=== PATIENT | female | born 1965 | race Caucasian/White ===

== ENCOUNTER 2019-08-12 11:50 | Observation (INO) | payer SELFPAY ==
[2019-08-12] MEDS ORDERED: Azithromycin 500 MG VIAL ONE (12:35)
[2019-08-12 13:47] LABS: Lactic Acid 2.9 mmol/L (0.5-2.2)
[2019-08-12] MEDS ORDERED: Sodium Chloride 0.9% 1,000 ML IV SCH (14:29)
[2019-08-12] MEDS ORDERED: Ibuprofen 200 MG TAB PO PRN (14:33)
[2019-08-12] MEDS ORDERED: hydrALAZINE 20 MG/ML VIAL SLOW IVP PRN (14:33)
[2019-08-12] MEDS ORDERED: cloNIDine 0.1 MG TAB PO PRN (14:33)
[2019-08-12] MEDS ORDERED: Guaifenesin DM 100-10/5 ML UDCUP PO PRN (14:33)
[2019-08-12] MEDS ORDERED: Ondansetron PF 4 MG/2 ML Vial IVP PRN (14:33)
[2019-08-12] MEDS ORDERED: Ondansetron ODT 4 MG TAB PO PRN (14:33)
[2019-08-12] MEDS ORDERED: Acetaminophen 500 MG TAB PO PRN (14:33)
[2019-08-12 14:39] VITALS: BMI 33.3
--- NOTE | 2019-08-12 15:51 | HP ---
PRIMARY CARE PROVIDER: Kacie Aguila of [place], [place]. CHIEF COMPLAINT: Cough, shortness of breath, general body aches. HISTORY OF PRESENT ILLNESS: This is a 54-year-old female who initially presented to [place] [facility] complaining of sore throat, general body aches, cough and fever. The patient states she had symptoms for approximately 1 week, taking [id number] preparations for mild relief. The patient states she took NyQuil on a regular basis with some resolution of her symptoms in one week. The patient states she had approximately 2 days without symptoms, regaining the similar symptoms of upper respiratory infection within the last 24 to 48 hours. The patient admits to body aches, low-grade fever that was undocumented, cough, congestion, rhinorrhea. The patient denies any prior history of influenza and states she had walking pneumonia in the past. The patient reports a prior history of smoking but none currently. The patient also reports her has had similar symptoms in the last 24 to 48 hours. The patient denies having influenza or pneumonia vaccination which were current. In the emergency room, the patient underwent general evaluation including chest imaging showing questionable infiltrate in the left lower lobe. The patient's metabolic screening showed mild lactic acidosis and the patient received IV Rocephin in addition to normal saline and ibuprofen. The patient was transferred to the [facility] Emergency Department for further evaluation. PAST MEDICAL HISTORY: 1. Hypertension. 2. Hyperlipidemia. 3. Fatty liver disease. 4. Diabetes mellitus, diet controlled. PAST SURGICAL HISTORY: 1. Status post right wrist surgery x2. 2. Status post right elbow repair. 3. Status post left shoulder repair. PSYCHIATRIC HISTORY: Positive for depression. CURRENT MEDICATIONS: 1. BuSpar 15 mg p.o. b.i.d. 2. Lipitor 10 mg p.o. daily. 3. Metoprolol succinate 100 mg p.o. daily. 4. Losartan 25 mg p.o. daily. 5. HCTZ 25 mg p.o. daily. 6. Gabapentin 300 mg p.o. t.i.d. ALLERGIES: NO KNOWN DRUG ALLERGIES. FAMILY HISTORY: Positive for hypertension and diabetes mellitus. SOCIAL HISTORY: The patient formally used tobacco products, none currently. No alcohol or illicit drug use. . REVIEW OF SYSTEMS: CONSTITUTIONAL: Negative for weight loss or gain, ability to conduct usual activities. SKIN: Negative for rash, itching. EYES: Negative for double vision, pain. ENT/MOUTH: Negative for nose bleeding, neck stiffness, pain, tenderness. CARDIOVASCULAR: Negative for palpitations, dyspnea on exertion, orthopnea. RESPIRATORY: Negative for shortness of breath, wheezing, cough, hemoptysis, fever or night sweats. GASTROINTESTINAL: Negative for poor appetite, abdominal pain, heartburn, nausea, vomiting, constipation, or diarrhea. GENITOURINARY: Negative for urgency, frequency, dysuria, nocturia. MUSCULOSKELETAL: Negative for pain, swelling. NEUROLOGIC/PSYCHIATRIC: Negative for anxiety, depression. ALLERGY/IMMUNOLOGIC: Negative for skin rash, bleeding tendency. Otherwise negative except as stated per HPI. PHYSICAL EXAMINATION: VITAL SIGNS: On admission, blood pressure 187/110, pulse 110, respiratory rate 18, temperature 99.8 degrees Fahrenheit, O2 saturation 96% on room air. GENERAL APPEARANCE: This is a 54-year-old female, alert and oriented x3, pleasant, in mild distress. HEENT: Pupils are equal, round, reactive to light and accommodation. Extraocular muscles are intact. No scleral icterus. No conjunctival injection. Nares patent. OP is clear. Oral mucosa dry. NECK: Supple. No cervical adenopathy. No thyromegaly. No carotid bruits. No JVD appreciated. Cervical spine with full active and passive range of motion. No meningeal signs noted. CHEST: Lungs are clear to auscultation bilaterally. CARDIOVASCULAR: S1, S2 with tachycardia. No murmur, rub, or gallop appreciated. ABDOMEN: Rounded, soft, nontender, and nondistended. Bowel sounds are positive in all 4 quadrants. There is no hepatosplenomegaly. No abdominal bruits. No rebound or guarding appreciated. EXTREMITIES: Warm and dry with fair turgor. No clubbing, cyanosis, or asymmetric edema appreciated. Pulses palpable distally at the dorsalis pedis, posterior tibial, and popliteal arteries bilaterally. Capillary refill less than 2 seconds. NEUROLOGIC: Cranial nerves 2 through 12 are grossly intact. No focal or lateralizing signs appreciated. PERTINENT LABORATORY AND X-RAY FINDINGS: Sodium 144, potassium 3.8, chloride 103, CO2 of 27, BUN 8, creatinine 0.87, glucose 109. Lactic acid level 2.8, calcium 9.8. LFTs within normal limits. Albumin 4.3. CBC showed a white blood cell count of 9.6, hemoglobin 15, hematocrit 46, platelet count 235 with 74% neutrophils. Urinalysis showed specific gravity of 1.028, pH of 5, positive protein, small bilirubin with 4 to 6 wbc's per high-power field, 7 to 10 squamous epithelial cells. Portable chest x-ray dated 08/12/2019, by my review shows questionable early infiltrate in the left lower lobe. ASSESSMENT AND PLAN: 1. Pneumonia, suspected community-acquired with gram-positive cocci. The patient will be observed on the medical unit. We will continue Rocephin 2 g IV q.24 hours with initial Zithromax 500 mg IV daily. Add DuoNeb q.4 hours. Mucolytics and antitussive agents as needed. Blood cultures x2 pending. Continue intravenous normal saline at 125 mL/hour. 2. Lactic acidosis. Suspect multifactorial including #1 in addition to dehydration. Continue IV fluids with normal saline at 125 mL/hour and repeat lactic acid level per protocol. 3. Hypertension. Labile. Resume home antihypertensive regimen once confirmed. P.r.n. hydralazine and clonidine. Serial blood pressure monitoring. 4. Dehydration. See #2 above. Continue IV fluids as outlined previously and encourage free water intake orally. 5. Prophylaxis. SCDs while in bed. Pepcid 20 mg p.o. b.i.d. Update influenza and pneumonia vaccination prior to discharge. CODE STATUS: Full. Surrogate medical decision maker is the patient's spouse. Job ID: [id number]
[2019-08-12] MEDS: Benzonatate 100 MG CAP PO PRN (18:31)
[2019-08-12] MEDS: Sodium Chloride 0.9% 1,000 ML IV SCH ×2 (18:33→23:36)
[2019-08-12] MEDS ORDERED: Melatonin 3 MG TAB PO PRN (20:21)
[2019-08-12] MEDS: Famotidine 20 MG TAB PO SCH (20:59)
[2019-08-13] MEDS: Benzonatate 100 MG CAP PO PRN (01:56)
[2019-08-13 05:27] LABS: Band 3 % (5-11); Eosinophils 1 % (0-10); Lymphocytes 24 % (21-51); MDiff Complete? YES; Mean Corpuscular HGB CONC 33.7 g/dL (32.0-36.0); Mean Corpuscular Hemoglobin 32.6 pg (27.0-31.0); Mean Corpuscular Volume 96.6 fL (78.0-98.0); Mean Platelet Volume 8.6 fL (7.4-10.4); Monocytes 10 % (0-10); Neutrophil 61 % (42-75); Platelet Count 191 thou/uL (130-400); Platelet Morphology Comment Appears Adequate; RBC Distribution Width 13.5 % (11.5-14.5); Reactive Lymphocytes 1 % (0-10); Red Blood Cell (RBC) Count 3.68 mill/uL (4.20-5.40); White Blood Cell (WBC) Count 7.4 thou/uL (4.8-10.8)
[2019-08-13 05:31] LABS: Anion Gap 12 mmol/L (10-20); BUN (Urea Nitrogen) 5 mg/dL (9.8-20.1); Calc. Creatinine Clearance 114 mL/min (70-130); Carbon Dioxide 24 mmol/L (22-29); Chloride 109 mmol/L (98-107); Estimated GFR-MDRD 81; Glucose 116 mg/dL (70-105); Potassium 3.5 mmol/L (3.5-5.1); Sodium 141 mmol/L (136-145)
[2019-08-13] MEDS: Diabetic Tussin 200 MG/10 ML UDCUP PO PRN ×2 (05:49→11:46)
[2019-08-13] MEDS: Sodium Chloride 0.9% 1,000 ML IV SCH ×2 (07:57→13:48)
[2019-08-13] MEDS: Famotidine 20 MG TAB PO SCH (07:57)
[2019-08-13 08:14] VITALS: BP 142/78; TEMP 98.7
[2019-08-13] MEDS ORDERED: FLU VACC QS2019-20(6MOS UP)/PF 60 MCG/0.5 ML SYRINGE IM ONE (09:00)
[2019-08-13] MEDS ORDERED: guaiFENesin ER 600 MG TAB PO SCH (09:00)
[2019-08-13] MEDS ORDERED: cefTRIAXone\\ROCEPHIN 2 GM in Sodium Chloride 0.9% 100 ML IVPB SCH (11:00)
[2019-08-13] MEDS ORDERED: methylPREDNISolone Sod Succ 40 MG VIAL IVP SCH (11:02)
[2019-08-13] MEDS ORDERED: Azithromycin 500 MG in Sodium Chloride 0.9% 250 ML 250 ML IVPB SCH (13:00)
--- NOTE | 2019-08-13 19:13 | DIS ---
DATE OF ADMISSION: 08/12/2019 DATE OF DISCHARGE: 08/13/2019 DISCHARGE DISPOSITION: Home. PRIMARY DISCHARGE DIAGNOSES: Bronchopneumonia, likely due to viral illness. Asthma exacerbation. SECONDARY DISCHARGE DIAGNOSES: Hypertension, diet-controlled diabetes, dyslipidemia. PROCEDURES DONE DURING HOSPITALIZATION: Chest x-ray done showed no acute finding. Respiratory viral panel PCR detected rhinovirus. Influenza A and B antigens were negative. Blood cultures x2, no growth. H and H 12 and 35, platelet count 191 with 61% neutrophils. BUN 5, creatinine 0.7. Lactic acid 2.8. Liver enzymes within normal limits. DISCHARGE MEDICATIONS: 1. BuSpar 15 mg twice daily. 2. Atorvastatin 10 mg p.o. at bedtime. 3. Celexa 60 mg p.o. daily. 4. Gabapentin 600 mg p.o. three times daily. 5. Hydrochlorothiazide 25 mg daily. 6. Losartan 25 mg daily. 7. Toprol-XL 100 mg daily. 8. Albuterol nebulizer q.8 hourly p.r.n. 9. Omnicef 300 mg p.o. twice daily for 5 days. 10. Mucinex 600 mg p.o. twice daily. 11. Prednisone 10 mg twice daily for three days, then daily for 3 days and to stop. ALLERGIES: NO KNOWN DRUG ALLERGIES. DISCHARGE PLAN: The patient to follow up with Dr. Mingo Hester in 1 week. BRIEF COURSE DURING HOSPITALIZATION: The patient initially came in with complaints of cough, shortness of breath, generalized body aches, postnasal drip, and congestion in her sinuses. She has had these symptoms for nearly a week and a half now. The patient also has history of asthma. She was placed under observation on telemetry. Initial suspicion was for possible bronchopneumonia. Her virus panel PCR came back positive for rhinovirus. The patient had asthma exacerbation. She was given a dose of steroids along with a brief IV antibiotics which has been discontinued. She needs to continue steroid taper for 1 week along with albuterol nebulization at home. Likely viral infection precipitated her asthma exacerbation. She is hemodynamically stable, ambulating prior to discharge. She needs to see a primary care physician in 1 week. If the patient would develop fever or her wheezing gets worse, she needs to come to the ER. I have seen and examined the patient on the day of discharge. Job ID: [id number]
== END 2019-08-13 17:44 | disposition home or self-care (01) ==
LOC: ERS 11:50 → 2SW 13:07
PROVIDERS: ADMIT Family Medicine; ATTEND Family Medicine
DX: J18.0 Bronchopneumonia, unspecified organism (principal); E87.2 Acidosis; I10 Essential (primary) hypertension; E78.5 Hyperlipidemia, unspecified; E11.9 Type 2 diabetes mellitus without complications; K76.0 Fatty (change of) liver, not elsewhere classified; F32.9 Major depressive disorder, single episode, unspecified; E86.0 Dehydration; J45.901 Unspecified asthma with (acute) exacerbation; Z87.891 Personal history of nicotine dependence; Z79.899 Other long term (current) drug therapy
CPT/HCPCS: 36415; 80048; 83605; 85007; 85027; 87633; 94640; 96361; 96365; 96366; G0378; J0456; J0696; J2920; J3490; J7620